=== PATIENT | male | born 1990 | race Caucasian/White ===

== ENCOUNTER 2019-07-02 05:28 | Day surgery (SDC) | payer MEDICAID ==
[~2019-07-02] VITALS: Ht 160 cm; Wt 57.8 kg
[~2019-07-02 05:28] MED LIST: IBUP-1223 PO
[2019-07-02] MEDS ORDERED: LACTATED RINGERS 1,000 ML IV SCH (05:48)
[2019-07-02 05:51] VITALS: BP 124/82
[2019-07-02] MEDS ORDERED: LIDOCAINE-MPF 1%, 2ML ONE (05:57)
[2019-07-02] MEDS ORDERED: LIDOCAINE-MPF 1%, 2ML INFIL ONE (06:00)
[2019-07-02] MEDS ORDERED: ROPIvacaine/PF 0.5%, 20 ML ONE (06:49)
[2019-07-02] MEDS ORDERED: LIDOCAINE 1%, 20ML ONE (06:49)
[2019-07-02] MEDS ORDERED: EPINEPHRINE 1 MG/ML, 1ML ONE (06:49)
[2019-07-02] MEDS ORDERED: ACETAMINOPHEN 500 MG TABLET PO STA (06:50)
[2019-07-02] MEDS ORDERED: GABAPENTIN 300 MG CAPSULE PO STA (06:50)
[2019-07-02] MEDS ORDERED: SCOPOLAMINE PATCH, 1.5MG PATCH.TD72 TD STA (06:50)
[2019-07-02] MEDS ORDERED: SCOPOLAMINE PATCH, 1.5MG PATCH.TD72 TD ONE (06:55)
[2019-07-02] MEDS ORDERED: ACETAMINOPHEN 500 MG TABLET ONE (06:56)
[2019-07-02] MEDS ORDERED: GABAPENTIN 300 MG CAPSULE ONE (06:56)
[2019-07-02] MEDS ORDERED: MIDAZOLAM 1 MG/ML, 2ML ONE (07:02)
[2019-07-02] MEDS ORDERED: FENTANYL PF 100 MCG/2ML ONE (07:05)
[2019-07-02] MEDS ORDERED: ONDANSETRON 2MG/ML, 2ML ONE (07:06)
[2019-07-02] MEDS ORDERED: PROPOFOL 10 MG/ML, 20ML ONE ×2 (07:28)
[2019-07-02] MEDS ORDERED: EPHEDRINE 50 MG/ML, 1ML IVPush PRN (07:30)
[2019-07-02] MEDS ORDERED: MEPERIDINE/PF 25MG/ML,1ML IVPush PRN (07:30)
[2019-07-02] MEDS ORDERED: OXYcodone 5 MG/5 ML ORAL.SOL UDC PO PRN (07:30)
[2019-07-02] MEDS ORDERED: PROMETHAZINE 12.5 MG SUPP PR PRN (07:30)
[2019-07-02] MEDS ORDERED: PROMETHAZINE 25 MG/ML, 1ML IV PRN (07:30)
[2019-07-02] MEDS ORDERED: HYDROmorphone 2 MG/ML, 1ML IVPush PRN (07:30)
[2019-07-02] MEDS ORDERED: hydrALAzine 20 MG/ML, 1ML IV PRN (07:30)
[2019-07-02] MEDS ORDERED: LABETALOL 5MG/ML, 20ML IV PRN (07:30)
[2019-07-02] MEDS ORDERED: HALOPERIDOL 5 MG/ML IV PRN (07:30)
[2019-07-02] MEDS ORDERED: ALBUTEROL SULFATE 2.5 MG/3 ML NPPB PRN (07:30)
[2019-07-02] MEDS ORDERED: ONDANSETRON 2MG/ML, 2ML IV PRN (07:30)
[2019-07-02] MEDS ORDERED: DIAZEPAM 5 MG/ML, 2ML IVPush PRN (07:30)
[2019-07-02] MEDS ORDERED: ONDANSETRON ODT 8 MG PO PRN (07:30)
[2019-07-02] MEDS ORDERED: MIDAZOLAM 1 MG/ML, 2ML IV PRN (07:30)
[2019-07-02] MEDS ORDERED: FENTANYL PF 100 MCG/2ML IV PRN (07:30)
[2019-07-02] MEDS ORDERED: DEXAMETHASONE 4 MG/ML, 1ML ONE ×2 (07:31)
[2019-07-02] MEDS ORDERED: CEFAZOLIN 1,000 MG ONE ×2 (07:31)
[2019-07-02] MEDS ORDERED: ROCURONIUM 10MG/ML,5ML ONE (07:31)
[2019-07-02] MEDS ORDERED: ROPIvacaine/PF 0.5%, 30 ML INFIL ONE (07:42)
[2019-07-02] MEDS ORDERED: LIDOCAINE 1%-EPI 1:100K, 30ML INFIL ONE (07:43)
[2019-07-02] MEDS ORDERED: OXYcodone 5 MG/5 ML ORAL.SOL UDC ONE (10:04)
== END 2019-07-02 11:20 | disposition home or self-care (01) ==
LOC: OUT 05:28
PROVIDERS: ATTEND Orthopaedic Surgery
DX: S83.512A Sprain of anterior cruciate ligament of left knee, initial encounter (principal); S83.212A Bucket-handle tear of medial meniscus, current injury, left knee, initial encounter; S83.282A Other tear of lateral meniscus, current injury, left knee, initial encounter; M94.262 Chondromalacia, left knee; X58.XXXA Exposure to other specified factors, initial encounter; Y93.89 Activity, other specified; Y92.89 Other specified places as the place of occurrence of the external cause; Y99.8 Other external cause status
CPT/HCPCS: 29881; 29882; 29888; 64447; C1713; J0171; J0690; J1100; J2250; J2405; J2704; J2795; J3010; J3490; J7120